=== PATIENT | female | born 1985 | race African-American/Black ===

== ENCOUNTER 2017-09-16 21:29 | Emergency (ER) | payer BC ==
[~2017-09-16] VITALS: Ht 177.8 cm; Wt 103.2 kg
[~2017-09-16 21:29] MED LIST: FLEXERIL 1010 MG/TAB PO; LORTAB 5/500 501 TAB PO; NAPROSYN500 MG PO; NO HOME MEDICATIONS; OCUFLOX OPHTH DR5 ML OD; PRENATAL1 TA1 PO
[2017-09-16 21:35] VITALS: BP 128/70; TEMP 99.7
[2017-09-16] MEDS ORDERED: PRENATAL1 TA7 PO (21:39)
[2017-09-16] MEDS ORDERED: AMOXICILLIN 8751 TAB PO (23:38)
[2017-09-16 23:42] VITALS: PULSE 105
== END 2017-09-16 23:50 | disposition home or self-care (01) ==
LOC: COL.ER 21:29
DX: O99.511 Diseases of the respiratory system complicating pregnancy, first trimester (principal); O24.419 Gestational diabetes mellitus in pregnancy, unspecified control; J20.9 Acute bronchitis, unspecified; Z3A.11 11 weeks gestation of pregnancy
CPT/HCPCS: J7030

== ENCOUNTER 2018-03-22 22:24 | Emergency (ER) | payer BC ==
[~2018-03-22] VITALS: Ht 177.8 cm; Wt 102.7 kg
[~2018-03-22 22:24] MED LIST changes: +AMOXICILLIN 8751 TAB PO; +PRENATAL1 TA7 PO
[2018-03-22 22:38] VITALS: TEMP 98.7
[2018-03-22] MEDS ORDERED: DIABETA 2.5MG2.5 MG PO (23:49)
[2018-03-22] MEDS ORDERED: DIABETA 5MG5 MG/TAB PO (23:49)
[2018-03-23 00:10] LABS: BASO % 0.4 % (0.0-2.0); EOS # 0.1 (0.0-0.7); EOS % 0.9 % (0-4.0); GRAN # 5.2 (1.4-6.5); GRAN % 66.7 % (42.2-75.2); HEMOGLOBIN 11.5 g/dl (12.5-16.0); LYMPH # 1.5 (1.2-3.4); LYMPH % 19.4 % (20.0-51.0); MEAN CELL VOLUME 87 fl (80.0-100.0); MEAN CORPUSCULAR HEMOGLOBIN 28 pg (27.0-31.0); MEAN CORPUSCULAR HGB CONC 33 g/dl (33.0-37.0); MONO % 12.2 % (1.7-9.3); PLATELET COUNT 246 K/mm3 (130-400); RED BLOOD COUNT 4.05 M/mm3 (4.10-5.30); REDCELL DISTRIBUTION WIDTH-CV 14.5 % (11.5-14.5)
[2018-03-23 00:12] LABS: HEMATOCRIT 35.2 % (37.0-47.0)
[2018-03-23 00:19] LABS: CALCIUM 9.4 mg/dL (8.4-10.2); CREATININE, serum 0.5 mg/dL (0.52-1.25); POTASSIUM 3.9 mmol/L (3.4-5.0)
[2018-03-23 00:50] VITALS: BP 130/80; PULSE 93
== END 2018-03-23 00:52 | disposition home or self-care (01) ==
LOC: COL.ER 22:24
PROVIDERS: Emergency Medicine
DX: R60.9 Edema, unspecified (principal)

== ENCOUNTER 2018-03-31 07:37 | Inpatient (IN) | payer BC ==
[~2018-03-31] VITALS: Ht 175.3 cm; Wt 102.7 kg
[2018-03-31] VITALS (23 sets, daily range): BP systolic 102–130; BP diastolic 49–78; PULSE 76–98; TEMP 97.9–98.4
[~2018-03-31 07:37] MED LIST changes: +DIABETA 2.5MG2.5 MG PO; +DIABETA 5MG5 MG/TAB PO
[2018-03-31 09:34] LABS: BASO % 0.2 % (0.0-2.0); EOS # 0.1 (0.0-0.7); EOS % 0.6 % (0-4.0); GRAN # 6.2 (1.4-6.5); GRAN % 73.4 % (42.2-75.2); HEMOGLOBIN 11.7 g/dl (12.5-16.0); LYMPH # 1.3 (1.2-3.4); LYMPH % 15.9 % (20.0-51.0); MEAN CELL VOLUME 89 fl (80.0-100.0); MEAN CORPUSCULAR HEMOGLOBIN 28 pg (27.0-31.0); MEAN CORPUSCULAR HGB CONC 32 g/dl (33.0-37.0); MEAN PLATELET VOLUME 10.1 fl (7.4-10.4); MONO # 0.8 (0.1-0.6); MONO % 9.4 % (1.7-9.3); PLATELET COUNT 253 K/mm3 (130-400); RED BLOOD COUNT 4.13 M/mm3 (4.10-5.30); REDCELL DISTRIBUTION WIDTH-CV 14.7 % (11.5-14.5)
[2018-03-31 09:35] LABS: HEMATOCRIT 36.8 % (37.0-47.0)
[2018-04-01 02:35] VITALS: BP 117/62; PULSE 86; TEMP 97.6
[2018-04-01 06:50] VITALS: BP 101/78; PULSE 74; TEMP 98.1
[2018-04-01 09:02] LABS: HEMOGLOBIN 11.4 g/dl (12.5-16.0)
[2018-04-01 09:10] LABS: HEMATOCRIT 34.8 % (37.0-47.0)
[2018-04-01 16:06] VITALS: BP 115/83; PULSE 82; TEMP 97.7
[2018-04-01 23:10] VITALS: BP 123/70; PULSE 81; TEMP 98
[2018-04-02 07:15] VITALS: BP 115/60; PULSE 86; TEMP 97.7
[2018-04-02] MEDS ORDERED: IBU600 MG PO (11:55)
[2018-04-02] MEDS ORDERED: PERCOCET 325 MG1 TA2 PO (11:55)
== END 2018-04-02 14:00 | disposition home or self-care (01) | DRG 807 ==
LOC: LDR 07:37 → OB 14:15 → LDR 14:55 → OB 04-02 14:00
PROVIDERS: Obstetrics & Gynecology
PROC: 10E0XZZ Delivery of Products of Conception, External Approach (ICD-10-PCS; principal; 2018-03-31)
PROC: 10907ZC Drainage of Amniotic Fluid, Therapeutic from Products of Conception, Via Natural or Artificial Opening (ICD-10-PCS; 2018-03-31)
PROC: 3E033VJ Introduction of Other Hormone into Peripheral Vein, Percutaneous Approach (ICD-10-PCS; 2018-03-31)
DX: O24.12 Pre-existing type 2 diabetes mellitus, in childbirth (principal); Z37.0 Single live birth; E11.9 Type 2 diabetes mellitus without complications; Z3A.38 38 weeks gestation of pregnancy; O99.824 Streptococcus B carrier state complicating childbirth; Z91.14 Patient's other noncompliance with medication regimen; T38.3X6A Underdosing of insulin and oral hypoglycemic [antidiabetic] drugs, initial encounter
CPT/HCPCS: J2540; J2590; J7120

== ENCOUNTER → 2019-01-29 | Outpatient (CLI) | payer BC ==
[~2019-01-29] MED LIST changes: +IBU600 MG PO; +PERCOCET 325 MG1 TA2 PO
[2019-01-29 18:57] LABS: ALBUMIN 4.4 gm/dL (3.5-5.0); BILIRUBIN,TOTAL 0.4 mg/dL (0.0-1.0); CALCIUM 10.3 mg/dL (8.4-10.2); CREATININE, serum 0.78 (0.52-1.25); POTASSIUM 4.7 mmol/L (3.4-5.0); TOTAL PROTEIN 8.5 gm/dL (6.4-8.2)
== END ==
LOC: ZCOL.LAB 17:02
PROVIDERS: Family Medicine
DX: Z86.32 Personal history of gestational diabetes (principal)